=== PATIENT | female | born 1950 | race Caucasian/White ===

== ENCOUNTER → 2018-12-20 | Outpatient (CLI) | payer MEDICARE, OTHER ==
--- NOTE | 2018-12-20 13:42 | Diagnostic Imaging Report ---
INDICATION: Left hip pain. FINDINGS: An AP view of the pelvis shows no fracture or dislocation. The joint spaces in the hips are well preserved. IMPRESSION: Negative pelvis. Dictated by: Dictated on workstation # [id number]
== END ==
LOC: RAD FS 10:54
PROVIDERS: ATTEND Nurse Practitioner
DX: M25.552 Pain in left hip (principal)
CPT/HCPCS: 72170

== ENCOUNTER → 2018-12-29 | Outpatient (CLI) | payer MEDICARE, OTHER ==
--- NOTE | 2018-12-29 13:03 | Diagnostic Imaging Report ---
PROCEDURE: MRI lumbar spine. TECHNIQUE: Multiplanar, multisequence MRI of the lumbar spine was performed without contrast. INDICATION: Chronic low back pain. COMPARISON: There are no prior studies available for comparison. FINDINGS: The reconstructed T2 sagittal images show the vertebral body heights and alignment to be generally within normal limits. There is desiccation of the disc at every level and near-complete obliteration of the disc space at L4-L5. There is a disc bulge centrally at the L4-L5 level. The disc bulge flattens the ventral aspect of the thecal sac but does not produce spinal stenosis. The thecal sac is generous. The AP diameter of the thecal sac at this level is 17.4 mm. There is no significant neural foraminal narrowing identified either. There is also a disc bulge centrally at the L3-L4 level. The AP diameter of the thecal sac at this level is narrowed to 13.4 mm. There is no neural foraminal narrowing at L3-L4 either. At the L2-3 level, there is a disc bulge which flattens the ventral aspect of the thecal sac. The AP diameter of the thecal sac is narrowed to 11.9 mm. There is no neural foraminal narrowing identified. The remainder of the lumbar spine is unremarkable for spinal stenosis or nerve root encroachment. There is no abnormal signal arising from the cord or the vertebral bodies to indicate an acute abnormality. There is no sign of a paraspinal mass. Incidental note is made of numerous diverticula throughout the sigmoid colon. There is no sign of acute diverticulitis, however. IMPRESSION: 1. There is degenerative disc disease throughout the lumbar spine with the L4-L5 level the most severely affected. However, the thecal sac is generous, and there is no evidence for spinal stenosis or nerve root encroachment at any level. 2. There is no sign of an acute bony abnormality or of a cord lesion. 3. There is diverticulosis of the sigmoid colon without evidence for acute diverticulitis. Dictated by: Dictated on workstation # [id number]
== END ==
LOC: RAD 09:09
PROVIDERS: ATTEND Nurse Practitioner
DX: M51.16 Intervertebral disc disorders with radiculopathy, lumbar region (principal); K57.30 Diverticulosis of large intestine without perforation or abscess without bleeding
CPT/HCPCS: 72148

== ENCOUNTER → 2019-01-12 | Outpatient (CLI) | payer MEDICARE, OTHER ==
--- NOTE | 2019-01-27 16:25 | Diagnostic Imaging Report ---
INDICATION: History of thyroidectomy for thyroid carcinoma in April 2017. Thyroid nodule was detected in the left thyroid bed on outside ultrasound from 06/06/2018. In addition, there is a palpable nodule in the left posterior neck felt by the patient's physician. Study is performed for further evaluation. COMPARISON: Correlation is made with outside ultrasound from [facility], performed 06/06/2018. EXAMINATION: Ultrasound of soft tissues of the head and neck. FINDINGS: Postsurgical changes of thyroidectomy are noted. The hypoechoic nodule in the region of the left thyroid bed appears stable at 11 mm x 9 mm. In addition, the area felt by the patient's physician in the left neck was evaluated. No solid or cystic mass is seen. IMPRESSION: Stable hypoechoic nodule noted within the left thyroid bed when compared with prior ultrasound from 06/06/2018. Continued followup is recommended. Dictated on workstation # [id number]
== END ==
LOC: RAD 11:39
DX: C73 Malignant neoplasm of thyroid gland (principal)
CPT/HCPCS: 76536

== ENCOUNTER → 2020-06-07 | Outpatient (CLI) | payer MEDICARE ==
--- NOTE | 2020-06-07 11:58 | Diagnostic Imaging Report ---
Case is Mireya Carolina. Bilateral knees. Indication: Knee pain 3 views of each knee joint were obtained. There are no prior studies available for comparison. There is no fracture, dislocation or acute bony abnormality evident. There is moderate narrowing of the medial compartment of the right knee joint and mild narrowing of the medial compartment of the left knee joint. The lateral compartments of each knee joint are fairly well-maintained. However there is fairly severe narrowing of both patellofemoral spaces. There is no evidence for joint effusion. The soft tissues are unremarkable. Impression: 1. There is no evidence for an acute bony abnormality. 2. There is fairly severe degenerative disease of the patellofemoral spaces bilaterally. Dictated by: Dictated on workstation # [id number]
[2020-06-07 12:28] LABS: BASOPHILS % (AUTO) 1 % (0-10); EOSINOPHILS % (AUTO) 1 % (0-10); HEMATOCRIT 41 % (35-52); HEMOGLOBIN 13.8 G/DL (11.5-16.0); LYMPHOCYTES # (AUTO) 1.9 X 10^3 (1.0-4.0); LYMPHOCYTES % (AUTO) 37 % (12-44); MEAN CORPUSCULAR HEMOGLOBIN 32 PG (25-34); MEAN CORPUSCULAR HGB CONC 34 G/DL (32-36); MEAN CORPUSCULAR VOLUME 97 FL (80-99); MEAN PLATELET VOLUME 9.8 FL (7.4-10.4); MONOCYTES # (AUTO) 0.5 X 10^3 (0.0-1.0); MONOCYTES % (AUTO) 9 % (0-12); NEUTROPHILS # (AUTO) 2.6 X 10^3 (1.8-7.8); NEUTROPHILS % (AUTO) 52 % (42-75); PLATELET COUNT 199 10^3/uL (130-400); WHITE BLOOD COUNT 5.1 10^3/uL (4.3-11.0)
[2020-06-07 12:29] LABS: BASOPHILS # (AUTO) 0.1 10^3/uL (0.0-0.1); EOSINOPHILS # (AUTO) 0.1 10^3/uL (0.0-0.3)
[2020-06-07 13:05] LABS: ALANINE AMINOTRANSFERASE 16 U/L (0-55); ALKALINE PHOSPHATASE 59 U/L (40-136); BILIRUBIN,TOTAL 0.2 MG/DL (0.1-1.0); BUN/CREATININE RATIO 23; CALCIUM 9.6 MG/DL (8.5-10.1); CARBON DIOXIDE 25 MMOL/L (21-32); CHLORIDE 104 MMOL/L (98-107); CREATININE SERUM 0.64 MG/DL (0.60-1.30); GFR ESTIMATED > 60; GLUCOSE 104 MG/DL (70-105); SODIUM 140 MMOL/L (135-145)
[2020-06-07 13:06] LABS: ALBUMIN 3.9 GM/DL (3.2-4.5); TOTAL PROTEIN 6.8 GM/DL (6.4-8.2)
[2020-06-07 15:08] LABS: CHOLESTEROL 172 MG/DL (< 200); HDL CHOLESTEROL 48 MG/DL (40-60); TRIGLYCERIDES 178 MG/DL (<150); VLDL CHOLESTEROL 36 MG/DL (5-40)
[2020-06-07 15:30] LABS: FREE T4 (FREE THYROXINE) 1.02 NG/DL (0.70-1.48)
== END ==
LOC: LAB FS 10:05
PROVIDERS: ATTEND Family Medicine
DX: E03.9 Hypothyroidism, unspecified (principal); E78.5 Hyperlipidemia, unspecified; M17.0 Bilateral primary osteoarthritis of knee; I10 Essential (primary) hypertension; R73.9 Hyperglycemia, unspecified; Z85.850 Personal history of malignant neoplasm of thyroid
CPT/HCPCS: 36415; 80053; 80061; 83036; 84432; 84439; 84443; 85025; 86800

== ENCOUNTER → 2020-09-23 | Outpatient (CLI) | payer MEDICARE ==
--- NOTE | 2020-09-23 11:58 | Diagnostic Imaging Report ---
Indication: Left knee pain and twisting. Time of exam: 10:57 AM 3 views of the left knee demonstrate tricompartmental degenerative change with joint space narrowing and marginal spurring. There appears to be chondrocalcinosis of the medial and lateral compartments. No fracture or dislocation is seen. There is a moderate amount of suprapatellar fullness consistent with moderate joint effusion. Impression: Tricompartmental degenerative change and moderate joint effusion. No acute bony abnormality is detected. Dictated by: Dictated on workstation # [id number]
== END ==
LOC: RAD FS 10:42
PROVIDERS: ATTEND Nurse Practitioner
DX: M17.12 Unilateral primary osteoarthritis, left knee (principal)
CPT/HCPCS: 73562

== ENCOUNTER → 2021-03-11 | Outpatient (CLI) | payer MEDICARE | LOC: RAD 08:45 | PROVIDERS: ATTEND Family Medicine | DX: Z12.31 Encounter for screening mammogram for malignant neoplasm of breast (principal) | CPT/HCPCS: 77063; 77067 ==

== ENCOUNTER → 2021-08-28 | Outpatient (CLI) | payer MEDICARE ==
--- NOTE | 2021-08-28 17:24 | Diagnostic Imaging Report ---
INDICATION: Mass anterior right ankle for 2 weeks. EXAMINATION: Limited sonographic evaluation of the right ankle 08/28/2021 FINDINGS: There is an elongated subcutaneous heterogeneous area along the anterior aspect of the ankle of uncertain etiology. Given no radiologist is present at the time of evaluation it is unclear if this is associated with the anterior/extensor tendons of the ankle. This abnormality measures 5.7 x 0.8 x 2.1 cm in size. Peripheral vascularity is noted with no central vascularity seen. IMPRESSION: 1. Limited evaluation with a nonspecific heterogeneous abnormality in the anterior ankle. This could represent hematoma. Soft tissue mass not excluded. A torn and retracted tendon in the differential as well. MRI of the ankle is recommended for further characterization. Dictated by: Dictated on workstation # [id number]
== END ==
LOC: RAD 13:45
PROVIDERS: ATTEND Surgery
DX: M25.871 Other specified joint disorders, right ankle and foot (principal); R22.41 Localized swelling, mass and lump, right lower limb
CPT/HCPCS: 76881

== ENCOUNTER → 2021-09-23 | Outpatient (CLI) | payer MEDICARE ==
[~2021-09-23] MED LIST: GADOTERATE 0.5 MMOL/ML (CLARISCAN) 20 ML VIAL IV ONE
--- NOTE | 2021-09-24 11:50 | Diagnostic Imaging Report ---
PROCEDURE: MRI right joint lower extremity with and without contrast. TECHNIQUE: Multiplanar, multisequence pre and post contrast-enhanced YANG of the right joint lower extremity was accomplished. INDICATION: Mass anterior portion of the ankle. Marker at the site of concern. Prior history of thyroid carcinoma. EXAMINATION: Right lower extremity MR with and without contrast 09/23/2021 FINDINGS: Along the course of the anterior tibial tendon deep to the marker there is an oval area of T1 hypointensity which is heterogeneous on T2-weighted imaging with a peripheral rim of hypointensity and central hyperintensity perhaps fluid. The abnormality is inseparable from the anterior tibial tendon. Peripheral enhancement is noted with no central enhancement appreciated. Given its continuity with the anterior tibial tendon a tear of the tendon is suspected with perhaps a associated hematoma. Abscess felt to be less likely but clinical exclusion of an inflammatory or infectious etiology is recommended. The focal oval abnormality measures 3.4 cm in craniocaudal dimension and 1.7 x 1 cm on the axial images. A mass such as a giant cell tendon sheath tumor is also in the differential. The adjacent extensor digitorum longus and extensor hallucis longus tendons appear intact. The flexor tendons are intact. The peroneus longus tendon is intact. There is a longitudinal split tear within the peroneus brevis tendon distal to the malleolus without discontinuity. There is normal insertion of the tendon at the base of the 5th metatarsal. There is diffuse subcutaneous edema surrounding the ankle. The Achilles tendon appears intact. The plantar fascia is unremarkable. The anterior and posterior inferior tibiofibular ligaments intact. The anterior talofibular ligament is difficult to visualize perhaps due to positioning portions are seen and appear intact. The posterior talofibular ligament is intact. The deltoid ligament is intact. There is no acute osseous abnormality. IMPRESSION: 1. Nonspecific elongated abnormality inseparable from the anterior tibial tendon which could represent a tear and secondary hematoma formation along the course of the tendon correlate for recent injury. An abscess is not excluded and clinical exclusion of a such process is recommended with a mass given the enhancement pattern felt to be less likely but not excluded as discussed above. Other findings as above. Dictated by: Dictated on workstation # [id number]
== END ==
LOC: RAD 13:15
PROVIDERS: ATTEND Surgery
DX: S86.311A Strain of muscle(s) and tendon(s) of peroneal muscle group at lower leg level, right leg, initial encounter (principal); Z85.850 Personal history of malignant neoplasm of thyroid
CPT/HCPCS: 73723

== ENCOUNTER → 2021-09-24 | Outpatient (CLI) | payer MEDICARE | LOC: CARD 15:30 | PROVIDERS: ATTEND Family Medicine | DX: R07.9 Chest pain, unspecified (principal) | CPT/HCPCS: 36415; 84484; 93005 ==

== ENCOUNTER → 2021-10-01 | Outpatient (CLI) | payer MEDICARE | LOC: CARD 14:00 | PROVIDERS: ATTEND Family Medicine | DX: I08.0 Rheumatic disorders of both mitral and aortic valves (principal); I25.3 Aneurysm of heart | CPT/HCPCS: 93306 ==

== ENCOUNTER → 2021-10-08 | Outpatient (CLI) | payer MEDICARE ==
[~2021-10-08] VITALS: Ht 167 cm; Wt 113.0 kg
[~2021-10-08] MED LIST changes: +CATHETER FLUSH 10 ML SYR IVP PRN; -GADOTERATE 0.5 MMOL/ML (CLARISCAN) 20 ML VIAL IV ONE
[2021-10-08 12:49] VITALS: BP 151/95
--- NOTE | 2021-10-08 15:21 | Cardiology Stress Test Report ---
Stress Test Report Date of Procedure/Referring: Date of Procedure: Oct 08, 2021 PCP Shabana Osorio DO Admitting Physician Admitting Physician: Attending Physician: Yesica Ly MD Indications: HTN Baseline Heart Rate: 73 Baseline Blood Pressure: Blood Pressure Systolic: 151 Blood Pressure Diastolic: 95 Vital Signs Date Time Temp Pulse Resp B/P (MAP) Pulse Ox O2 Delivery O2 Flow Rate FiO2 10/08/21 12:49 71 151/95 (113) 97 Baseline Vital Signs Vital Signs Date Time Temp Pulse Resp B/P (MAP) Pulse Ox O2 Delivery O2 Flow Rate FiO2 10/08/21 12:49 71 151/95 (113) 97 Baseline EKG: Baseline EKG: NSR Summary: After explaining the procedure and details to the patient, she signed the consent and was brought to the stress nuclear laboratory. Patient exercised on standard Kirby protocol, EKG, heart rate and blood pressure were monitored continuously, resting and stress doses of radio tracer were injected, imaging was acquired and reviewed in the short axis, horizontal long axis and vertical long axis views Patient was able to exercise for a total of 4.30 minutes on Kirby protocol, METs 5.6 Maximum heart rate 141 Maximum blood pressure 222/95 Stress EKG, Minimal nondiagnostic changes Recovery EKG, Return to baseline TID: 0.92 SSS: 5 SDS: 3 EF: 63 Conclusion: 1. Good exercise tolerance for total of 4 minutes and 30 seconds on Kirby protocol, 5.6 METS achieving 92% of maximum expected heart rate 2. Appropriate heart rate response to exercise with hypertensive response to exercise return to baseline during recovery 3. Baseline right bundle branch block with frequent PVCs noted during exercise and ventricular bigeminy resolved in recovery 4. Mild reversible ischemia involving the mid to apical inferior wall and inferolateral wall 5. Normal left ventricular size, ejection fraction 63% YESICA LY MD Oct 08, 2021 15:20
== END ==
LOC: CARD 07:30
PROVIDERS: ATTEND Internal Medicine Cardiovascular Disease
DX: I10 Essential (primary) hypertension (principal); I25.10 Atherosclerotic heart disease of native coronary artery without angina pectoris
CPT/HCPCS: 78452; 93017; A9502

== ENCOUNTER 2021-10-25 08:51 | Day surgery (SDC) | payer MEDICARE ==
[2021-10-25] VITALS (9 sets, daily range): BP systolic 101–135; BP diastolic 62–89
[~2021-10-25] VITALS: Ht 167.7 cm; Wt 113.4 kg
[2021-10-25] MEDS ORDERED: ASPIRIN 81 MG CHEW (CHILDREN'S ASA) PO ONE (09:00)
[2021-10-25 09:12] LABS: BASOPHILS # (AUTO) 0.1 10^3/uL (0.0-0.1); BASOPHILS % (AUTO) 1 % (0-10); EOSINOPHILS # (AUTO) 0.2 10^3/uL (0.0-0.3); EOSINOPHILS % (AUTO) 3 % (0-10); HEMATOCRIT 40 % (35-52); HEMOGLOBIN 13.7 g/dL (11.5-16.0); LYMPHOCYTES # (AUTO) 1.9 10^3/uL (1.0-4.0); LYMPHOCYTES % (AUTO) 30 % (12-44); MEAN CORPUSCULAR HEMOGLOBIN 32 pg (25-34); MEAN CORPUSCULAR HGB CONC 34 g/dL (32-36); MEAN CORPUSCULAR VOLUME 94 fL (80-99); MEAN PLATELET VOLUME 9.8 fL (9.0-12.2); MONOCYTES # (AUTO) 0.8 10^3/uL (0.0-1.0); MONOCYTES % (AUTO) 12 % (0-12); NEUTROPHILS # (AUTO) 3.4 10^3/uL (1.8-7.8); NEUTROPHILS % (AUTO) 54 % (42-75); PLATELET COUNT 181 10^3/uL (130-400); WHITE BLOOD COUNT 6.3 10^3/uL (4.3-11.0)
[2021-10-25 09:24] LABS: ALBUMIN 3.9 GM/DL (3.2-4.5); CHLORIDE 105 MMOL/L (98-107); POTASSIUM 4.3 MMOL/L (3.6-5.0); SODIUM 138 MMOL/L (135-145)
[2021-10-25 09:27] LABS: GLUCOSE 112 MG/DL (70-105); TOTAL PROTEIN 6.6 GM/DL (6.4-8.2)
[2021-10-25 09:28] LABS: CARBON DIOXIDE 23 MMOL/L (21-32)
[2021-10-25 09:29] LABS: BILIRUBIN,TOTAL 0.3 MG/DL (0.1-1.0)
[2021-10-25 09:30] LABS: ALKALINE PHOSPHATASE 55 U/L (40-136); CREATININE SERUM 0.89 MG/DL (0.60-1.30); GFR ESTIMATED 70
[2021-10-25 09:31] LABS: BUN/CREATININE RATIO 30
[2021-10-25 09:33] LABS: ALANINE AMINOTRANSFERASE 26 U/L (0-55)
--- NOTE | 2021-10-25 09:35 | Diagnostic Imaging Report ---
CLINICAL INDICATION: Patient with chest heaviness. EXAM: Chest x-ray, PA and lateral views. COMPARISON: None. FINDINGS: Lungs/pleura: There is a small calcified granuloma involving the right upper lobe. Lungs are clear. There is no pneumothorax. There is no pleural effusion. Mediastinum: Unremarkable. Pulmonary vasculature: Unremarkable. Heart: Unremarkable. Bones/extrathoracic soft tissue: There are degenerative spurs involving the spine. IMPRESSION: There is no radiographic evidence of acute cardiopulmonary process. Dictated by: Dictated on workstation # [id number]
--- NOTE | 2021-10-25 10:16 | ED Chest Pain ---
General Chief Complaint: Chest Pain Stated Complaint: SOB,CHEST HEAVINESS Nursing Triage Note: PT AMB TO RM 5 WITH COMPLAINT OF CHEST HEAVINESS. STATES HAS BEEN SEEING DR JUAREZ. IS SCHEDULED TO HAVE A HEART CATH. Source: patient Exam Limitations: no limitations History of Present Illness Date Seen by Provider: Oct 25, 2021 Time Seen by Provider: 10:00 Initial Comments Patient to the ER by private conveyance with her significant other chief complaint that she is had a couple months of heaviness in her chest worse with exertion. Shortness of air with exertion. Heaviness, leaden legs with exertion. When she lays flat she is fine. No orthopnea or PND. No known history of coronary disease but she does have hypertension. She does not take anything for hyperlipidemia. She is on Trulicity for diabetes and followed by Dr. MONTOYA. She has been working it up with Dr. Juarez and had a stress test that was concerning so they were going to do a heart catheterization yesterday but it did not get performed. She continues to have the pressure. She did get some aspirin by the ER nurse on arrival. She rates her symptoms as 0 out of 10 laying flat at this time. No history of acid reflux. She does have a history of thyroidectomy secondary to a stage I cancer 6 years ago. Allergies and Home Medications Allergies Coded Allergies: No Known Drug Allergies (Unverified , 09/23/21) Patient Home Medication List Home Medication List Reviewed: Yes Review of Systems Review of Systems Constitutional: No chills, No diaphoresis EENTM: No Blurred Vision, No Double Vision Respiratory: Denies Cough, Denies Shortness of Air Cardiovascular: Chest Pain; Denies Edema Gastrointestinal: No Symptoms Reported Genitourinary: No Symptoms Reported Musculoskeletal: no symptoms reported All Other Systems Reviewed Negative Unless Noted: Yes Past Promoxb-Lftvor-Qcfvqu Hx Patient Social History Tobacco Use?: No Use of E-Cig and/or Vaping dev: No Substance use?: No Alcohol Use?: No Pt feels they are or have been: No Physical Exam Vital Signs Vital Signs - First Documented 10/25/21 08:55 Pulse 71 Resp 26 B/P (MAP) 147/79 (101) Pulse Ox 96 O2 Delivery Room Air Capillary Refill : Less Than 3 Seconds Height, Weight, BMI Height: '" Weight: lbs. oz. kg; 40.00 BMI Method: General Appearance: WD/WN, Mild Distress HEENT: PERRL/EOMI, Pharynx Normal, Moist Mucous Membranes Neck: Full Range of Motion, Normal Inspection Respiratory: No Accessory Muscle Use, No Respiratory Distress Cardiovascular: Regular Rate, Rhythm, No Edema, Normal Peripheral Pulses Gastrointestinal: Normal Bowel Sounds, Non Tender, Soft Extremity: Normal Capillary Refill, Normal Inspection Neurologic/Psychiatric: Alert, Oriented x3, No Motor/Sensory Deficits Skin: Normal Color, Warm/Dry Progress/Results/Core Measures Results/Orders Lab Results Laboratory Tests Test 10/25/21 09:06 Range/Units White Blood Count 6.3 4.3-11.0 10^3/uL Red Blood Count 4.30 3.80-5.11 10^6/uL Hemoglobin 13.7 11.5-16.0 g/dL Hematocrit 40 35-52 % Mean Corpuscular Volume 94 80-99 fL Mean Corpuscular Hemoglobin 32 25-34 pg Mean Corpuscular Hemoglobin Concent 34 32-36 g/dL Red Cell Distribution Width 13.8 10.0-14.5 % Platelet Count 181 130-400 10^3/uL Mean Platelet Volume 9.8 9.0-12.2 fL Immature Granulocyte % (Auto) 0 % Neutrophils (%) (Auto) 54 42-75 % Lymphocytes (%) (Auto) 30 12-44 % Monocytes (%) (Auto) 12 0-12 % Eosinophils (%) (Auto) 3 0-10 % Basophils (%) (Auto) 1 0-10 % Neutrophils # (Auto) 3.4 1.8-7.8 10^3/uL Lymphocytes # (Auto) 1.9 1.0-4.0 10^3/uL Monocytes # (Auto) 0.8 0.0-1.0 10^3/uL Eosinophils # (Auto) 0.2 0.0-0.3 10^3/uL Basophils # (Auto) 0.1 0.0-0.1 10^3/uL Immature Granulocyte # (Auto) 0.0 0.0-0.1 10^3/uL Sodium Level 138 135-145 MMOL/L Potassium Level 4.3 3.6-5.0 MMOL/L Chloride Level 105 98-107 MMOL/L Carbon Dioxide Level 23 21-32 MMOL/L Anion Gap 10 5-14 MMOL/L Blood Urea Nitrogen 27 H 7-18 MG/DL Creatinine 0.89 0.60-1.30 MG/DL Estimat Glomerular Filtration Rate 70 BUN/Creatinine Ratio 30 Glucose Level 112 H 70-105 MG/DL Calcium Level 10.0 8.5-10.1 MG/DL Corrected Calcium 10.1 8.5-10.1 MG/DL Total Bilirubin 0.3 0.1-1.0 MG/DL Aspartate Amino Transf (AST/SGOT) 23 5-34 U/L Alanine Aminotransferase (ALT/SGPT) 26 0-55 U/L Alkaline Phosphatase 55 40-136 U/L Troponin I < 0.028 <0.028 NG/ML B-Type Natriuretic Peptide 87.8 <100.0 PG/ML Total Protein 6.6 6.4-8.2 GM/DL Albumin 3.9 3.2-4.5 GM/DL My Orders Orders - BLAISE FOX Ekg Tracing (10/25/21 08:54) Cbc With Automated Diff (10/25/21 08:59) Comprehensive Metabolic Panel (10/25/21 08:59) Troponin I Marcelina (10/25/21 08:59) Bnp [place] (10/25/21 08:59) Chest 1 View, Ap/Pa Only (10/25/21 08:59) Ed Iv/Invasive Line Start (10/25/21 08:59) Aspirin Chewable Tablet (Baby Aspirin Ch (10/25/21 09:00) Medications Given in ED Current Medications Medications Dose Ordered Sig/Clement Route Start Time Stop Time Status Last Admin Dose Admin Aspirin 324 mg ONCE ONCE PO 10/25/21 09:00 10/25/21 09:02 DC 10/25/21 09:09 324 MG Vital Signs/I&O 10/25/21 08:55 Pulse 71 Resp 26 B/P (MAP) 147/79 (101) Pulse Ox 96 O2 Delivery Room Air Blood Pressure Mean: 101 Progress Progress Note : Time: 12:14 Progress Note Initial labs and x-ray look okay. She is been having ongoing outpatient work-up with plans to heart cath so we have left a message with Dr. Juarez who is in the middle of a procedure. He will get back to us when he is available. Initial ECG Impression Date: Oct 25, 2021 Initial ECG Impression Time: 09:00 Initial ECG Rate: 69 Initial ECG Rhythm: Normal Sinus Initial ECG Intervals: QT (476) Initial ECG Impression: Normal Comment Normal sinus rhythm with right bundle branch block and no clinically relevant ST elevation or depression. PVC seen. Diagnostic Imaging Diagonstic Imaging: Xray Plain Films/CT/US/NM/MRI: chest Comments [facility] [place] [place] NAME: KADIE BELTRAN [facility] REC#: [id number] PT STATUS: REG ER : 1950 PHYSICIAN: BLAISE FOX MD ADMIT DATE: 10/25/21/ER Signed Date of Exam:10/25/21 CHEST 1 VIEW, AP/PA ONLY CLINICAL INDICATION: Patient with chest heaviness. EXAM: Chest x-ray, PA and lateral views. COMPARISON: None. FINDINGS: Lungs/pleura: There is a small calcified granuloma involving the right upper lobe. Lungs are clear. There is no pneumothorax. There is no pleural effusion. Mediastinum: Unremarkable. Pulmonary vasculature: Unremarkable. Heart: Unremarkable. Bones/extrathoracic soft tissue: There are degenerative spurs involving the spine. IMPRESSION: There is no radiographic evidence of acute cardiopulmonary process. Dictated by: Dictated on workstation # [id number] Dict: 10/25/2133 Trans: 10/25/21 0937 [id number] Interpreted by: ROBERT BARON MD Electronically signed by: ROBERT BARON MD 10/25/21 0937 Reviewed: Reviewed by Me Departure Communication (Admissions) Time/Spoke to Admitting Phy: 12:05 Dr. Juarez to the ER and visited with the patient. He is familiar with her and wants to take her straight to [facility]. Patient is okay with this plan. Impression Primary Impression: Chest pain Qualified Codes: R07.9 - Chest pain, unspecified Disposition: ADMITTED INPATIENT Condition: Stable Admissions Decision to Admit Reason: Admit from ER (General) Decision to Admit/Date: Oct 25, 2021 Time/Decision to Admit Time: 12:00 Departure-Patient Inst. Referrals: ZULY MONTOYA DO (PCP/Family) Primary Care Physician BLAISE FOX Oct 25, 2021 10:16
--- NOTE | 2021-10-25 12:51 | Consultation-Cardiology ---
HPI-Cardiology Cardiology Consultation Date of Consultation 10/25/21 Date of Admission Time Seen by Provider: 12:48 Indication: Chest pain HPI 71-year-old lady with history of diabetes mellitus, strong family history of heart disease, has coronary artery disease with abnormal stress test on October 08, 2021. Patient was awaiting for insurance approval for cardiac catheterization, has been having recurrent chest pain. She developed sudden onset of chest pain dull in nature in the retrosternal area radiating to the back with chest pain in the jaw and the left shoulder. Occurred during exertion. Came into the emergency room, on my evaluation she was feeling better, reporting improvement in her chest pain. Due to the recent abnormal stress test I decided to proceed with emergency cardiac catheterization Home Medications & Allergies Allergies: Coded Allergies: No Known Drug Allergies (Unverified , 09/23/21) Home Medication List Reviewed: Yes IXA-Qtgyuv-Elvbez Hx Patient Social History Marital Status: Employed/Student: employed, retired Have you traveled recently?: No Alcohol Use?: No Past Medical History Discussed below Family Medical History Family Medical Hx Strong family history of heart disease Review of Systems-General Review of Systems Constitutional: no symptoms reported, see HPI EENTM: see HPI, no symptoms reported Respiratory: no symptoms reported, see HPI, dyspnea on exertion Cardiovascular: see HPI, chest pain Gastrointestinal: no symptoms reported, see HPI Genitourinary: no symptoms reported, see HPI Musculoskeletal: no symptoms reported, see HPI Skin: no symptoms reported, see HPI Psychiatric/Neurological: No Symptoms Reported, See HPI Reviewed Test Results Reviewed Test Results Lab Laboratory Tests Test 10/25/21 09:06 Range/Units White Blood Count 6.3 4.3-11.0 10^3/uL Red Blood Count 4.30 3.80-5.11 10^6/uL Hemoglobin 13.7 11.5-16.0 g/dL Hematocrit 40 35-52 % Mean Corpuscular Volume 94 80-99 fL Mean Corpuscular Hemoglobin 32 25-34 pg Mean Corpuscular Hemoglobin Concent 34 32-36 g/dL Red Cell Distribution Width 13.8 10.0-14.5 % Platelet Count 181 130-400 10^3/uL Mean Platelet Volume 9.8 9.0-12.2 fL Immature Granulocyte % (Auto) 0 % Neutrophils (%) (Auto) 54 42-75 % Lymphocytes (%) (Auto) 30 12-44 % Monocytes (%) (Auto) 12 0-12 % Eosinophils (%) (Auto) 3 0-10 % Basophils (%) (Auto) 1 0-10 % Neutrophils # (Auto) 3.4 1.8-7.8 10^3/uL Lymphocytes # (Auto) 1.9 1.0-4.0 10^3/uL Monocytes # (Auto) 0.8 0.0-1.0 10^3/uL Eosinophils # (Auto) 0.2 0.0-0.3 10^3/uL Basophils # (Auto) 0.1 0.0-0.1 10^3/uL Immature Granulocyte # (Auto) 0.0 0.0-0.1 10^3/uL Sodium Level 138 135-145 MMOL/L Potassium Level 4.3 3.6-5.0 MMOL/L Chloride Level 105 98-107 MMOL/L Carbon Dioxide Level 23 21-32 MMOL/L Anion Gap 10 5-14 MMOL/L Blood Urea Nitrogen 27 H 7-18 MG/DL Creatinine 0.89 0.60-1.30 MG/DL Estimat Glomerular Filtration Rate 70 BUN/Creatinine Ratio 30 Glucose Level 112 H 70-105 MG/DL Calcium Level 10.0 8.5-10.1 MG/DL Corrected Calcium 10.1 8.5-10.1 MG/DL Total Bilirubin 0.3 0.1-1.0 MG/DL Aspartate Amino Transf (AST/SGOT) 23 5-34 U/L Alanine Aminotransferase (ALT/SGPT) 26 0-55 U/L Alkaline Phosphatase 55 40-136 U/L Troponin I < 0.028 <0.028 NG/ML B-Type Natriuretic Peptide 87.8 <100.0 PG/ML Total Protein 6.6 6.4-8.2 GM/DL Albumin 3.9 3.2-4.5 GM/DL Physical Exam Physical Exam Vital Signs Vital Signs - First Documented 10/25/21 08:55 Pulse 71 Resp 26 B/P (MAP) 147/79 (101) Pulse Ox 96 O2 Delivery Room Air Capillary Refill : Less Than 3 Seconds Height, Weight, BMI Height: '" Weight: lbs. oz. kg; 40.00 BMI Method: General Appearance: No Apparent Distress, WD/WN Eyes: Bilateral Eye Normal Inspection, Bilateral Eye PERRL, Bilateral Eye EOMI HEENT: PERRL/EOMI, TMs Normal, Normal ENT Inspection, Pharynx Normal, Moist Mucous Membranes Neck: Full Range of Motion, Normal Inspection, Non Tender, Supple, Carotid Bruit Respiratory: Chest Non Tender, Normal Breath Sounds, No Accessory Muscle Use, No Respiratory Distress Cardiovascular: Regular Rate, Rhythm, No Edema, No Gallop, No JVD, No Murmur, Normal Peripheral Pulses Gastrointestinal: Normal Bowel Sounds, No Organomegaly, No Pulsatile Mass, Non Tender, Soft Back: Normal Inspection, No CVA Tenderness, No Vertebral Tenderness Extremity: Normal Capillary Refill, Normal Inspection, Normal Range of Motion, Non Tender, No Calf Tenderness, No Pedal Edema Neurologic/Psychiatric: Alert, Oriented x3, No Motor/Sensory Deficits, Normal Mood/Affect Skin: Normal Color, Warm/Dry Lymphatic: No Adenopathy A/P-Cardiology Admission Diagnosis Chest pain Coronary artery disease Diabetes mellitus Family history of atherosclerosis Assessment/Plan Chest pain, unstable angina, coronary artery disease, I am planning to proceed with emergency cardiac catheterization Coronary artery disease, abnormal stress test on October 08, 2021, patient had baseline right bundle branch block with frequent PVCs noted during stress test with ventricular bigeminy in recovery, had mild reversible ischemia involving the mid to apical inferior wall and inferolateral wall, ejection fraction 63%. Patient was being scheduled for a cardiac catheterization as an outpatient. I will proceed with cardiac catheterization 2D echo was done on October 01, 2021 showing normal LV size with EF 55 to 60%, aneurysmal intra-atrial septum, mild aortic regurgitation, PA pressure 30 to 35 mmHg Diabetes mellitus, followed and managed by primary care physician Hypothyroidism, followed and managed by primary care physician Strong family history of heart disease History of thyroidectomy, hysterectomy. YESICA LY MD Oct 25, 2021 12:51
[2021-10-25] MEDS ORDERED: fentaNYL INJ 100 MCG/2 ML AMP ONE (13:31)
[2021-10-25] MEDS ORDERED: NS IV 1000 ML 1,000 ML ONE (13:32)
[2021-10-25] MEDS ORDERED: LIDOCAINE 1% INJ 20 ML VIAL ONE (13:32)
[2021-10-25] MEDS ORDERED: MIDAZOLAM 5 MG/5 ML (VERSED) VIAL ONE (13:32)
[2021-10-25] MEDS ORDERED: HEParin 1000 UNIT/ML (10ML VIAL) FOR BOLUS ONE (13:33)
[2021-10-25] MEDS ORDERED: HEParin (CATH LAB) 2,000 ML IV ONE (13:34)
[2021-10-25] MEDS ORDERED: VERAPAMIL 5 MG/2 ML (CALAN) VIAL IV ONE (13:35)
[2021-10-25] MEDS ORDERED: NITRO DRIP 25000 MCG/D5W 250 ML IV ONE (13:35)
--- NOTE | 2021-10-25 14:37 | Discharge Inst-Post CATH ---
Discharge Inst-CATH/EP Problems Reviewed?: Yes Post Cardiac Cath/EP D/C Inst Follow Up/Plan Continue on the same home medication, patient is taking benazepril, diltiazem, levothyroxine, metoprolol, naproxen, Nasacort, triamterenehydrochlorothiazide, Trulicity and vitamin Dfolic acid Appointment with Dr. Juarez's office in 2 to 4 weeks <b>CARDIAC CATH/EP PROCEDURE DISCHARGE INSTRUCTIONS</b> ACTIVITY * Go Home directly and rest. * Limit activity of the leg (or wrist if it was used) for 7 days including aerobics, swimming, jogging, bicycling, etc. * Restrict stair-climbing for 7 days if possible, if not, climb up with your non-cath leg, then bring together on the same step. * Avoid lifting, pushing, pulling or excessive movement of the affected extremity for 7 days. * Customary sexual activity may be resumed after 2 days-use caution not to use a position that strains or causes pain to the affected extremity. * No driving for 24 hours. * NO SMOKING. * Avoid straining for bowel movements for 7 days. * Gentle walking on level ground is allowed. * Returning to work will depend on the type of procedure and the results. Your doctor will discuss this with you. CALL YOUR DOCTOR FOR ANY OF THE FOLLOWING: *If bleeding from the puncture site occurs- Apply gentle pressure to site with clean cloth and call your doctor or EMS. * If a knot or lump forms under the skin, increases in size, or causes pain. * If bruising appears to be worsening or moving further down your leg instead of disappearing. * Temperature above 101 F. CARE OF YOUR GROIN INCISION; * Bruising or purple discoloration of the skin near the puncture site is common. * You may shower only, no bathtub bathing for 5 days. Be careful to avoid slipping as your leg may feel stiff. * If a closure device was used on your femoral artery, please see the attached guide regarding care of the device and your leg. * Leave dressing on FOR 24 hours. CARE OF YOUR WRIST INCISION; * Bruising or purple discoloration of the skin near the puncture site is common. * You may shower. * DO NOT submerge wrist. * Leave dressing on FOR 24 hours. YESICA JUAREZ MD Oct 25, 2021 14:37
--- NOTE | 2021-10-25 14:41 | Cardiac Cath Report ---
Cardiac Cath Report Physician (s)/Continuity Director (s) Physician YESICA LY MD Pre-Procedure Diagnosis Pre-Procedure Diagnosis: Coronary artery disease Post-Procedure Note Procedure Start Date: Oct 25, 2021 Name of Procedure: Left heart catheterization Findings/Procedure Note PROCEDURE NOTE: 71-year-old lady with history of hypertension, hyperlipidemia, hypothyroidism, has been having recurrent chest pain, admitted with acute chest pain, had an abnormal stress test. Patient was brought for cardiac catheterization possible PTCA. After explaining the procedure to the patient, all pros and cons were explained, all questions were answered. The patient signed the consent and then she was placed on the cardiac catheterization laboratory. Groin was prepped SL fashion local anesthesia was used. Sheath placed in the right radial artery, [place] catheter was prolapsed to the left ventricular cavity left ventricular pressure was measured no left ventriculogram was done per, pullback LV to aorta was done, engage the left system and angiogram was done. I was unable to engage the right system. 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 With separate ostium to the conus branch. I had difficulty engaging selectively the right coronary artery, it took multiple maneuver and excessive use of contrast but I was able to engage the right coronary artery and did angiogram to the right c oronary artery. At the end of the procedure the sheath was removed. 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 Nonobstructive disease LV Gram was not done, pressure was measured CONCLUSION: 1. 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 Normal left ventricular end-diastolic pressure DISCUSSION AND RECOMMENDATION: Chest pain and abnormal stress test are probably due to small vessel disease, conservative management is recommended, adding aspirin to current medication and monitoring lipids closely. Anesthesia Type: Conscious Sedation Estimated blood loss (mL): 15 ml Contrast Amount: 90 ml Total Radiation Dose: 1053 mGy Post-Procedure Diagnosis Post-operative diagnosis: Chest pain Coronary artery disease Hypertension Hyperlipidemia Diabetes mellitus YESICA LY MD Oct 25, 2021 14:41
[2021-10-25] MEDS ORDERED: NS IV 1000 ML 1,000 ML IV SCH (14:45)
--- NOTE | 2021-10-28 11:06 | Conscious Sedation/ASA ---
10/28/21 1106: Conscious Sedation Pre-Proced ASA Score For ASA 3 and 4: Consider anesthesia and medical clearance. Also, for patients with a history of failed moderate sedation consider anesthesia. Airway Lungs Heart ASA score ASA 1: a normal healthy patient ASA 2: a patient with a mild systemic disease (mid diabetes, controlled hypertension, obesity ASA 3: a patient with a severe systemic disease that limits activity (angina, COPD, prior Myocardial infarction) ASA 4: a patient with an incapacitating disease that is a constant threat to life (CHF, renal failure) ASA 5: a moribund patient not expected to survive 24 hrs. (ruptured aneurysm) ASA 6: a declared brain- patient whose organs are being harvested. For emergent operations, add the letter E after the classification Sedation Plan The patient is an appropriate candidate to undergo the planned procedure, sedation, and anesthesia. The patient immediately re-assessed prior to indication. YESICA LY MD 10/28/21 1932: Conscious Sedation Pre-Proced Time 19:32 ASA Score 3 Mallampati Classification Grade 3 Sedation Plan Analgesia, Amnesia, Plan communicated to team members, Discussed options with patient/fam, Discussed risks with patient/fam Oct 28, 2021 11:06 YESICA LY MD Oct 28, 2021 19:32
== END 2021-10-25 17:30 | disposition home or self-care (01) ==
LOC: EDUNIT# 08:51 → ER 08:54 → CATH 12:30 → ICU 14:53 → CATH 17:30
PROVIDERS: ATTEND Internal Medicine Cardiovascular Disease
DX: I25.110 Atherosclerotic heart disease of native coronary artery with unstable angina pectoris (principal); I10 Essential (primary) hypertension; E78.5 Hyperlipidemia, unspecified; E11.9 Type 2 diabetes mellitus without complications; E03.9 Hypothyroidism, unspecified
CPT/HCPCS: 71045; 80053; 83880; 84484; 85025; 93005; 93458; 99285; C1894; 36415

== ENCOUNTER → 2021-10-30 | Outpatient (CLI) | payer MEDICARE | LOC: ORTHO 15:38 | PROVIDERS: ATTEND Orthopaedic Surgery | DX: R22.40 Localized swelling, mass and lump, unspecified lower limb (principal) ==

== ENCOUNTER → 2021-12-10 | Outpatient (CLI) | payer MEDICARE ==
[2021-12-10] MEDS: RT-ALBUTEROL SULF 2.5 MG/3 ML PRE-MIX VIAL INH ONE (15:58)
== END ==
LOC: RT 15:45
PROVIDERS: ATTEND Internal Medicine Cardiovascular Disease
DX: I45.10 Unspecified right bundle-branch block (principal)
CPT/HCPCS: 94060; 94726; 94729

== ENCOUNTER → 2021-12-25 | Outpatient (CLI) | payer MEDICARE ==
--- NOTE | 2021-12-25 16:59 | Diagnostic Imaging Report ---
INDICATION: Knee contusion, pain. EXAMINATION: Right knee 12/25/2021 COMPARISON: 06/07/2020. 3 views the knee FINDINGS: There is moderate medial compartment narrowing. There is lateral compartment narrowing which is mild with associated spurring. Severe patellofemoral narrowing is noted. There is a moderate joint effusion with loose bodies noted. No fractures or dislocations. IMPRESSION: 1. 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 Dictated by: Dictated on workstation # [id number]
== END ==
LOC: RAD FS 15:23
PROVIDERS: ATTEND Nurse Practitioner
DX: M17.11 Unilateral primary osteoarthritis, right knee (principal); M23.231 Derangement of other medial meniscus due to old tear or injury, right knee
CPT/HCPCS: 73562

== ENCOUNTER 2022-01-07 12:48 | Outpatient (CLI) | payer MEDICARE | END 2022-01-07 13:15 | LOC: SLEEP 12:48 | PROVIDERS: ATTEND Internal Medicine Cardiovascular Disease | DX: G47.33 Obstructive sleep apnea (adult) (pediatric) (principal); I10 Essential (primary) hypertension | CPT/HCPCS: G0399 ==

== ENCOUNTER → 2022-09-29 | Outpatient (CLI) | payer MEDICARE ==
--- NOTE | 2022-09-30 10:30 | Diagnostic Imaging Report ---
INDICATION: Routine screening. COMPARISON: 03/11/2021 and 10/05/2016. TECHNIQUE: 2D and 3D bilateral screening mammography was performed with CAD. FINDINGS: Both breasts are heterogeneously dense, limiting the sensitivity of mammography. The benign-appearing nodule in the right breast is stable. There are scattered benign calcifications. No spiculated mass or malignant-appearing microcalcifications are seen. The axillae are unremarkable. IMPRESSION: No mammographic features suspicious for malignancy are identified. ACR BI-RADS Category 2: Benign findings. Result letter will be mailed to the patient. Note: At least 10% of breast cancer is not imaged by mammography. Dictated by: Dictated on workstation # [id number]
== END ==
LOC: RAD 14:08
PROVIDERS: ATTEND Family Medicine
DX: Z12.31 Encounter for screening mammogram for malignant neoplasm of breast (principal)
CPT/HCPCS: 77063; 77067